=== PATIENT | female | born 1995 | race Caucasian/White ===

== ENCOUNTER 2021-07-10 10:52 | Emergency (ER) | payer BC ==
[2021-07-10 11:05] VITALS: BMI 35.1
[2021-07-10] MEDS ORDERED: ACETAMINOPHEN 1000 MG/100 ML BAG IVPB ONE (11:57)
[2021-07-10] MEDS ORDERED: SODIUM CHLORIDE 1,000 ML IV STA (11:57)
[2021-07-10] MEDS ORDERED: ACETAMINOPHEN INJECTION 100 ML IVPB ONE (12:00)
[2021-07-10 12:30] LABS: EOS % 3.7 % (0-4.5); HEMATOCRIT 41.1 % (32.4-45.2); HEMOGLOBIN 13.4 GM/dL (10.7-15.3); LYMPH % 27.4 % (8-40); MCH 28.6 pg (25.7-33.7); MCHC 32.6 g/dl (32.0-36.0); MEAN CELL VOLUME 87.7 fl (80-96); MEAN PLT VOLUME 9.6 fl (7.5-11.1); MONO % 8.5 % (3.8-10.2); NEUT % 59.4 % (42.8-82.8); PLATELET COUNT 244 10^3/uL (134-434); RBC 4.69 M/mm3 (3.60-5.2); RDW 14.1 % (11.6-15.6); WHITE BLOOD COUNT 6.8 K/mm3 (4.0-10.0)
[2021-07-10 12:51] LABS: ALBUMIN 3.7 g/dl (3.4-5.0); BLOOD UREA NITROGEN 17.8 mg/dL (7-18); CALCIUM 8.8 mg/dL (8.5-10.1)
[2021-07-10 12:54] LABS: CREATININE 0.6 mg/dL (0.55-1.3)
[2021-07-10 12:56] LABS: BILIRUBIN,TOTAL 0.4 mg/dL (0.2-1)
[2021-07-10 13:23] LABS: EPI CELLS >36 /uL (0-25.1); HCG,QUALITATIVE URINE Negative; HYALINE CASTS 2 /uL (0-3.1); PH,URINE 6.5 (5.0-8.0); URINE APPEARANCE CLEAR; URINE BACTERIA 1213 /uL (0-1359); URINE BILIRUBIN NEGATIVE (NEGATIVE); URINE COLOR YELLOW; URINE GLUCOSE (UA) NEGATIVE (NEGATIVE); URINE KETONE NEGATIVE (NEGATIVE); URINE LEUK ESTERASE TRACE (NEGATIVE); URINE NITRITE NEGATIVE (NEGATIVE); URINE PROTEIN NEGATIVE (NEGATIVE); URINE RBC 29 /uL (0-23.9); URINE WBC 56 /uL (0-25.8)
[2021-07-10 18:04] VITALS: BP 135/73; PULSE 78; TEMP 98.4
== END 2021-07-10 18:04 | disposition home or self-care (01) ==
LOC: JER 10:52
PROC: 3E033GC Introduction of Other Therapeutic Substance into Peripheral Vein, Percutaneous Approach (ICD-10-PCS; principal; 2021-07-10)
DX: N30.00 Acute cystitis without hematuria (principal)
CPT/HCPCS: 36415; 74177-TC; 76830-TC; 80053; 81003; 84703; 85025; 87086; 99285-25; Q9967

== ENCOUNTER 2021-11-28 18:32 | Emergency (ER) | payer BC ==
[2021-11-28 18:38] VITALS: BP 119/78; PULSE 86; TEMP 97.9; BMI 34.0
[2021-11-28] MEDS ORDERED: ALBUTEROL SO4 2.5/IPRATROPIUM 0.5 INH SOL 3 ML VIAL.NEB. NEB ONE ×2 (19:14→19:20)
[2021-11-28] MEDS ORDERED: ALBUTEROL SO4 0.083% IH SOL 2.5 MG/3 ML VIAL.NEB. NEB ONE (19:15)
[2021-11-28] MEDS ORDERED: predniSONE 20 MG TABLET (UD) PO ONE (20:00)
[2021-11-28] MEDS ORDERED: predniSONE 20 MG TABLET (UD) ONE (20:02)
[2021-11-28] MEDS ORDERED: AZITHROMYCIN 500 MG TABLET ONE (20:57)
== END 2021-11-28 21:11 | disposition home or self-care (01) ==
LOC: JER 18:32
PROC: 3E0F7GC Introduction of Other Therapeutic Substance into Respiratory Tract, Via Natural or Artificial Opening (ICD-10-PCS; principal; 2021-11-28)
DX: R05.1 Acute cough (principal)
CPT/HCPCS: 0241U-QW; 71046-TC-FY; 93005; 93010; 99285-25

== ENCOUNTER 2022-06-11 10:50 | Emergency (ER) | payer BC ==
[2022-06-11 10:57] VITALS: BP 124/78; PULSE 80; RESP 18; TEMP 98.9; BMI 34.0
== END 2022-06-11 12:43 | disposition home or self-care (01) ==
LOC: JER 10:50
DX: J21.0 Acute bronchiolitis due to respiratory syncytial virus (principal)
CPT/HCPCS: 0241U-QW; 71046-TC-FY; 87651; 99284-25